=== PATIENT | male | born 1995 ===

== ENCOUNTER → 2016-05-31 | Outpatient (CLI) | payer OTHER | LOC: BMCIMAGING 16:12 | PROVIDERS: ATTEND Family Medicine | DX: M79.672 Pain in left foot (principal); M25.572 Pain in left ankle and joints of left foot ==

== ENCOUNTER → 2016-12-07 | Outpatient (CLI) | payer OTHER | LOC: BMCIMAGING 12:25 | PROVIDERS: ATTEND Family Medicine | DX: R05 Cough (principal); J98.4 Other disorders of lung ==